=== PATIENT | female | born 1990 | race Caucasian/White ===

== ENCOUNTER 2024-06-04 12:44 | Outpatient (CLI) | payer OTHER | END 2024-06-04 14:07 | disposition home or self-care (01) | LOC: NST 12:44 | PROVIDERS: ATTEND Obstetrics & Gynecology Gynecology | DX: Z34.83 Encounter for supervision of other normal pregnancy, third trimester (principal) ==

== ENCOUNTER 2024-07-06 15:00 | Inpatient (IN) | payer OTHER ==
[~2024-07-06] VITALS: Ht 165.1 cm; Wt 79.4 kg
[2024-07-10 16:06] VITALS: BP 131/88
[2024-07-10] MEDS ORDERED: RINGERS SOLUTION,LACTATED 1,000 ML IV SCH (16:45)
[2024-07-10 17:33] LABS: HEMATOCRIT 33.1 % (36.0-45.00); HEMOGLOBIN 11.2 g/dL (12.0-15.00); MEAN CELL VOLUME 80.2 fL (80.00-100.00); MEAN CORPUSCULAR HEMOGLOBIN 27.1 pg (27.00-32.0); MEAN CORPUSCULAR HGB CONC 33.7 g/dl (32.0-36.0); PLATELET COUNT 308 K/uL (150-450); RED BLOOD COUNT 4.13 M/uL (4.00-6.00); RED CELL DISTRIBUTION WIDTH 13.3 % (11.5-14.5)
[2024-07-10 17:36] LABS: URINE APPEARANCE Clear; URINE BILIRRUBIN Negative (NEGATIVE); URINE BLOOD Negative; URINE COLOR Yellow; URINE GLUCOSE Negative (NEGATIVE); URINE KETONE Negative (NEGATIVE); URINE LEUKOCYTE Negative; URINE NITRATE Negative; URINE PROTEIN Negative (NEGATIVE); URINE UROBILINOGEN 0.2 E.U./dl
[2024-07-10 17:40] LABS: URINE BACTERIA 89.4 uL (0.0-1933); URINE WBC 2.7 uL (0.0-23.2)
[2024-07-10 17:44] LABS: URINE EPITHELIAL CELLS 0.6 uL (0.0-38.8); URINE RBC 1.3 uL (0.0-20.8)
[2024-07-10 18:02] LABS: INR < 0.93; PARTIAL THROMBOPLASTIN TIME 25.5 SECONDS (22.0-34.0)
[2024-07-10 18:12] LABS: ALBUMIN 2.9 gm/dL (3.4-5.0); BILIRUBIN TOTAL 0.34 mg/dL (0.3-1.2); CALCIUM 9.1 mg/dL (8.5-10.1); CREATININE SERUM 0.5 mg/dL (0.55-1.02); GFR 143.9; GLOBULINA 3.4 G/DL (2.4-3.5); POTASSIUM 4.19 mEq/L (3.5-5.1); TOTAL PROTEIN 6.3 gm/dL (6.4-8.2)
[2024-07-10] MEDS ORDERED: PRENATAL TABLE1 EAC1 PO (18:24)
[2024-07-10 19:49] VITALS: BP 131/75
[2024-07-10 23:46] VITALS: BP 125/80
[2024-07-11] VITALS (14 sets, daily range): BP systolic 124–155; BP diastolic 63–88; O2SAT 100
[2024-07-11] MEDS ORDERED: hydrOXYzine PAMOATE 25 MG CAPSULE PO ONE (00:25)
[2024-07-11] MEDS ORDERED: OXYTOCIN 500 ML IV ONE (07:30)
[2024-07-11] MEDS ORDERED: MORPHINE SULFATE 4 MG/ML CARTRIDGE IV PRN (12:15)
[2024-07-11] MEDS ORDERED: DOCUSATE SODIUM 100MG CAP PO SCH (19:48)
[2024-07-11] MEDS ORDERED: CHLORHEXIDINE GLUCONATE 120 ML BOTTLE TP SCH (20:00)
[2024-07-11] MEDS ORDERED: IBUprofen 400 MG TABLET PO PRN (20:00)
[2024-07-11] MEDS ORDERED: OXYTOCIN 1,000 ML IV ONE (20:00)
[2024-07-11] MEDS ORDERED: LABETALOL HCL 200 MG TABLET PO SCH (21:00)
[2024-07-11] MEDS ORDERED: LIDOCAINE HCL 1% 10ML VIAL IJ ONE (22:45)
[2024-07-11] MEDS ORDERED: ERYTHROMYCIN BASE OPHT 1GM EACH TUBE OP ONE (22:45)
[2024-07-12 01:05] VITALS: BP 124/70
[2024-07-12 07:42] LABS: HEMATOCRIT 30.1 % (36.0-45.00); MEAN CELL VOLUME 81.9 fL (80.00-100.00); MEAN CORPUSCULAR HEMOGLOBIN 27.1 pg (27.00-32.0); MEAN CORPUSCULAR HGB CONC 33.1 g/dl (32.0-36.0); PLATELET COUNT 263 K/uL (150-450); RED BLOOD COUNT 3.67 M/uL (4.00-6.00); RED CELL DISTRIBUTION WIDTH 13.4 % (11.5-14.5)
[2024-07-12 08:00] VITALS: BP 144/63
[2024-07-12] MEDS ORDERED: PNV,CALCIUM 72/IRON/FOLIC ACID 1 TAB TABLET PO SCH (09:00)
[2024-07-12 12:00] VITALS: BP 128/80
[2024-07-12 15:55] VITALS: BP 103/60
[2024-07-13 00:28] VITALS: BP 117/70
[2024-07-13 09:36] VITALS: BP 123/84
[2024-07-13] MEDS ORDERED: LABETALOL HCL200 MG PO (10:22)
== END 2024-07-13 14:40 | disposition home or self-care (01) | DRG 807 ==
LOC: LDR 07-10 16:42 → OB/GYN 07-11 19:35 → LDR 07-24 15:00
PROVIDERS: Obstetrics & Gynecology; ADMIT Obstetrics & Gynecology Gynecology; ATTEND Obstetrics & Gynecology Gynecology
PROC: 4A1HXCZ Monitoring of Products of Conception, Cardiac Rate, External Approach (ICD-10-PCS; 2024-07-10)
PROC: 10E0XZZ Delivery of Products of Conception, External Approach (ICD-10-PCS; principal; 2024-07-11)
PROC: 0UQG7ZZ Repair Vagina, Via Natural or Artificial Opening (ICD-10-PCS; 2024-07-11)
DX: O71.4 Obstetric high vaginal laceration alone (principal); Z37.0 Single live birth; Z3A.38 38 weeks gestation of pregnancy; Z20.822 Contact with and (suspected) exposure to COVID-19